=== PATIENT | female | born 1970 | race Asian ===

== ENCOUNTER 2018-01-23 06:22 | Emergency (ER) | payer OTHER ==
[2018-01-23] MEDS: LORAZEPAM 1 MG TAB PO (07:06)
[2018-01-23 07:14] LABS: URINE BLOOD (Dip) POC 1+ (NEGATIVE); URINE GLUCOSE (Dip) POC Negative (NEGATIVE); URINE KETONES (Dip) POC Negative (NEGATIVE); URINE LEUKOCYTE EST (Dip) POC Trace (NEGATIVE); URINE NITRITE (Dip) POC Negative (NEGATIVE); URINE TOTAL PROTEIN POC Negative (NEGATIVE)
== END 2018-01-23 07:41 | disposition home or self-care (01) ==
LOC: FTE 06:22
DX: G47.00 Insomnia, unspecified (principal); I10 Essential (primary) hypertension
CPT/HCPCS: 81003; 81025; 93005; 99283

== ENCOUNTER 2018-08-11 06:22 | Day surgery (SDC) | payer OTHER ==
[2018-08-11] MEDS ORDERED: DESFLURANE 15 MIN (07:00)
[2018-08-11] MEDS ORDERED: EPHEDrine SULFATE 50 MG/5 ML SYG (07:00)
[2018-08-11] MEDS ORDERED: LIDOCAINE 2% (SDV) 5 ML INJ (08:21)
[2018-08-11] MEDS ORDERED: CEFAZOLIN 1 GM INJ (08:21)
[2018-08-11] MEDS ORDERED: PROPOFOL 40 ML (08:21)
[2018-08-11] MEDS ORDERED: DEXAMETHASONE 4 MG/ML 1 ML INJ (08:21)
[2018-08-11] MEDS ORDERED: MIDAZOLAM 1 MG/ML 2 ML INJ (08:21)
[2018-08-11] MEDS ORDERED: ONDANSETRON 4 MG INJ (08:21)
[2018-08-11] MEDS ORDERED: FENTAnyl 50 MCG/ML VIAL (08:21)
[2018-08-11] MEDS ORDERED: FAMOTIDINE 20 MG INJ (08:22)
[2018-08-11] MEDS ORDERED: FENTAnyl 50 MCG/ML VIAL IV ×2 (08:30)
[2018-08-11] MEDS ORDERED: HYDROmorphONE 1 MG/5 ML IV SYRINGE IV ×2 (08:30)
[2018-08-11] MEDS ORDERED: LABETALOL HCL 20MG INJ IV (08:30)
[2018-08-11] MEDS ORDERED: DIPHENHYDRAMINE 50 MG INJ IV (08:30)
[2018-08-11] MEDS ORDERED: MEPERIDINE 25 MG INJ IV (08:30)
[2018-08-11] MEDS ORDERED: morphine (1 MG/ML) 10ML SYRINGE IV ×2 (08:30)
[2018-08-11] MEDS ORDERED: OXYCODONE/ACETAMINOPHEN (5/325) TAB PO ×2 (08:30)
[2018-08-11] MEDS ORDERED: ONDANSETRON 4 MG INJ IV (08:30)
[2018-08-11] MEDS ORDERED: ALBUTEROL 0.083% (NEB) 2.5 MG/3 ML AMP HHN (08:30)
[2018-08-11] MEDS: ACETAMINOPHEN 500 MG TAB PO (09:09)
[2018-08-11] MEDS ORDERED: ACETAMINOPHEN 325 MG TAB PO (10:30)
== END 2018-08-11 11:24 | disposition home or self-care (01) ==
LOC: SDS 06:22
DX: R93.89 Abnormal findings on diagnostic imaging of other specified body structures (principal); Z78.0 Asymptomatic menopausal state; I10 Essential (primary) hypertension; E03.9 Hypothyroidism, unspecified
CPT/HCPCS: 58558; 84702; 86850; 86900; 86901; 88305